=== PATIENT | male | born 1995 | race Caucasian/White ===

== ENCOUNTER 2016-06-24 10:47 | Emergency (ER) | payer OTHER ==
[2016-06-24 11:42] VITALS: BP 94/62
--- NOTE | 2016-06-24 11:50 | ER Document Report ---
ED Medical Screen (RME) - General Stated Complaint: EYE CONCERN Mode of Arrival: Ambulatory Information source: Patient Notes: 20 y/o M presents to ED c/o left eye redness, gritty feeling, and crusting over the last 2 days. States cannot recall obvious injury. I have greeted and performed a rapid initial assessment of this patient. A comprehensive ED assessment and evaluation of the patient, analysis of test results and completion of the medical decision making process will be conducted by additional ED providers. TRAVEL OUTSIDE OF THE [place] IN LAST 30 DAYS: No - Related Data Allergies/Adverse Reactions: No Known Allergies Allergy (Verified 04/05/16 18:00) Past Medical History - Immunizations Immunizations up to date: Yes Physical Exam - Vital signs Vitals: Temp Pulse Resp BP Pulse Ox 98.3 F 60 16 94/62 L 100 06/24/16 11:40 06/24/16 11:40 06/24/16 11:40 06/24/16 11:40 06/24/16 11:40 - General General appearance: Appears well, Alert In distress: None Course - Vital Signs Vital signs: Temp Pulse Resp BP Pulse Ox 98.3 F 60 16 94/62 L 100 06/24/16 11:40 06/24/16 11:40 06/24/16 11:40 06/24/16 11:40 06/24/16 11:40
[2016-06-24] MEDS ORDERED: TETRACAINE HCL 0.5% OPH SOLN 2 ML OS ONE (16:30)
--- NOTE | 2016-06-24 16:38 | ER Document Report ---
HPI - HPI Patient complains to provider of: LEFT EYE IRRITATION Onset: Other - 2 DAYS Pain Level: 1 Context: Patient presents to the emergency department with complaints of left eye irritation. He reports he was in the field 2 days ago when his left eye started irritating him. He reports some discharge when he wakes up in the morning. Denies wearing contacts denies trauma. Denies problems with his vision. 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 He reports he started to go to his [facility] but they were too slow so he came here. Symptoms such as fever vomiting diarrhea. Associated Symptoms: None Exacerbated by: Denies Relieved by: Denies Similar symptoms previously: No Recently seen / treated by doctor: No - DERM Skin Color: Normal Past Medical History - General Information source: Patient - Social History Smoking Status: Current Some Day Smoker Cigarette use (# per day): Yes Chew tobacco use (# tins/day): No Frequency of alcohol use: Occasional Drug Abuse: None Occupation: [place] [employer] [place] Lives with: Family Family History: Reviewed & Not Pertinent Patient has suicidal ideation: No Patient has homicidal ideation: No - Medical History Medical History: Negative Renal/ Medical History: Denies: Hx Peritoneal Dialysis Surgical Hx: Negative - Immunizations Immunizations up to date: Yes Vertical Provider Document - CONSTITUTIONAL Agree With Documented VS: Yes Exam Limitations: No Limitations General Appearance: WD/WN - INFECTION CONTROL TRAVEL OUTSIDE OF THE [place] IN LAST 30 DAYS: No - HEENT HEENT: Atraumatic, Normocephalic, PERRLA. negative: Conjuctival Injection - NECK Neck: Supple - RESPIRATORY Respiratory: Breath Sounds Normal, No Respiratory Distress O2 Sat by Pulse Oximetry: 100 - CARDIOVASCULAR Cardiovascular: Regular Rate - MUSCULOSKELETAL/EXTREMETIES Musculoskeletal/Extremeties: JITENDRA MONK - NEURO Level of Consciousness: Awake, Alert, Appropriate - DERM Integumentary: Warm, Dry Course - Re-evaluation Re-evalutation: 06/24/16 Patient was instructed on viral conjunctivitis. Patient was also instructed on importance of follow-up with his [facility] for recheck. Visual acuity was done with no deficits noted - Vital Signs Vital signs: Temp Pulse Resp BP Pulse Ox 98.3 F 60 16 94/62 L 100 06/24/16 11:40 06/24/16 11:40 06/24/16 11:40 06/24/16 11:40 06/24/16 11:40 Procedures - Eye Procedure Left Eye Irrigated w/ Saline (ccs): 10 Alcaine Drops Administered: No - tetracaine Fluorescein applied: Left Notes: 06/24/16 20:48 Patient reports immediate RELIEF OF IRRITATION after receiving tetracaine Discharge - Discharge Clinical Impression: Irritation of left eye, Viral conjunctivitis of left eye Condition: Stable Disposition: HOME, SELF-CARE Instructions: Conjunctivitis, Allergic Additional Instructions: *You have been evaluated for eye irritation, conjunctivitis *Use refresh or clear eyes eye drops as INDICATED *Follow up with your [facility] tomorrow for recheck *Return to ED for worsening condition, changes, needs
== END 2016-06-24 16:46 | disposition home or self-care (01) ==
LOC: ER 10:47
DX: B30.9 Viral conjunctivitis, unspecified (principal); H57.12 Ocular pain, left eye; F17.210 Nicotine dependence, cigarettes, uncomplicated
CPT/HCPCS: 99283

== ENCOUNTER 2018-06-23 16:40 | Emergency (ER) | payer OTHER ==
--- NOTE | 2018-06-23 18:46 | ER Document Report ---
ED Medical Screen (RME) - General Chief Complaint: Dizziness Stated Complaint: WEAK,NAUSEA Time Seen by Provider: 06/23/18 18:30 Mode of Arrival: Ambulatory Information source: Patient Notes: Patient is a 22-year-old male who presents the emergency department with lightheadedness, weakness, nausea and what feels like the room spinning around him. He denies any vomiting or diarrhea. He reports no fevers. Patient states his symptoms have been going on for 2 days. He denies any past medical or surgical history. Exam: Patient alert, oriented and in no acute distress. No neurological deficits noted. I have greeted and performed a rapid initial assessment of this patient. A comprehensive ED assessment and evaluation of the patient, analysis of test results and completion of the medical decision making process will be conducted by additional ED providers. Dictation of this chart was performed using voice recognition software; therefore, there may be some unintended grammatical errors. TRAVEL OUTSIDE OF THE [place] IN LAST 30 DAYS: No - Related Data Allergies/Adverse Reactions: No Known Allergies Allergy (Verified 06/23/18 18:11) Past Medical History - Social History Frequency of alcohol use: None Drug Abuse: None Renal/ Medical History: Denies: Hx Peritoneal Dialysis - Immunizations Immunizations up to date: Yes Physical Exam - Vital signs Vitals: Temp Pulse Resp BP Pulse Ox 98.6 F 76 16 127/59 H 100 06/23/18 16:57 06/23/18 16:57 06/23/18 16:57 06/23/18 16:57 06/23/18 16:57 Course - Vital Signs Vital signs: Temp Pulse Resp BP Pulse Ox 98.6 F 76 16 127/59 H 100 06/23/18 16:57 06/23/18 16:57 06/23/18 16:57 06/23/18 16:57 06/23/18 16:57
[2018-06-23 19:23] LABS: ABSOLUTE EOSINOPHILS # (AUTO) 0.3 10^3/uL (0.0-0.6); ABSOLUTE LYMPHOCYTES (AUTO) 3.3 10^3/uL (0.5-4.7); ABSOLUTE MONOCYTES (AUTO) 0.7 10^3/uL (0.1-1.4); ABSOLUTE NEUT (AUTO) 3.1 10^3/uL (1.7-8.2); BASOPHILS % (AUTO) 0.1 % (0-2); EOSINOPHILS % (AUTO) 3.5 % (0-6); HEMATOCRIT 45.4 % (37.9-51.0); HEMOGLOBIN 15.9 g/dL (13.5-17.0); LYMPHOCYTES % (AUTO) 44.6 % (13-45); MEAN CORPUSCULAR HGB CONC 35.1 g/dL (32.0-36.0); MEAN CORPUSCULAR VOLUME 86 fl (80-97); MONOCYTES % (AUTO) 9.4 % (3-13); PLATELET COUNT 253 10^3/uL (150-450); RED CELL DISTRIBUTION WIDTH 13.4 % (11.5-14.0); SEGMENTED NEUTROPHILS % (AUTO) 42.4 % (42-78); TOTAL CELLS COUNTED % (AUTO) 100 %; WHITE BLOOD COUNT 7.4 10^3/uL (4.0-10.5)
[2018-06-23 19:27] LABS: APPEARANCE,URINE CLEAR; BILIRUBIN,URINE NEGATIVE (NEGATIVE); COLOR,URINE YELLOW; GLUCOSE, URINE NEGATIVE (NEGATIVE); KETONES,URINE 80 mg/dL (NEGATIVE); LEUKOCYTE ESTERASE,URINE NEGATIVE (NEGATIVE); NITRITE,URINE NEGATIVE (NEGATIVE); PROTEIN,URINE NEGATIVE (NEGATIVE); URINE SPECIFIC GRAVITY 1.009; UROBILINOGEN,URINE NEGATIVE mg/dL (<2.0)
[2018-06-23 19:44] LABS: ALANINE AMINOTRANSFERASE 26 U/L (21-72); ALBUMIN 5.3 g/dL (3.5-5.0); ALKALINE PHOSPHATASE 67 U/L (38-126); ANION GAP 16 (5-19); ASPARTATE AMINO TRANSFERASE 19 U/L (17-59); BILIRUBIN,DIRECT 0.2 mg/dL (0.0-0.4); BILIRUBIN,TOTAL 2.6 mg/dL (0.2-1.3); BLOOD UREA NITROGEN 8 mg/dL (7-20); CALCIUM 10.1 mg/dL (8.4-10.2); CARBON DIOXIDE 25 mmol/L (22-30); CHLORIDE 99 mmol/L (98-107); GLUCOSE 77 mg/dL (75-110); LIPASE 58.4 U/L (23-300); POTASSIUM 4.2 mmol/L (3.6-5.0); SODIUM 139.5 mmol/L (137-145); TOTAL PROTEIN 7.6 g/dL (6.3-8.2)
--- NOTE | 2018-06-23 21:40 | ER Document Report ---
ED Dizziness/Weakness - General Chief Complaint: Dizziness Stated Complaint: WEAK,NAUSEA Time Seen by Provider: 06/23/18 21:40 Primary Care Provider: KATHY EATON MD [ACTIVE STAFF] - Follow up as needed Mode of Arrival: Ambulatory Information source: Patient Notes: HISTORY OF PRESENT ILLNESS: Patient is a 22-year-old male with no significant past medical history who presents with nausea and right upper quadrant abdominal pain. Location: Right upper quadrant Onset: Gradual Alleviation: "Some positions are better" Provocation: None Quality: Aching, tightness Radiation: None Severity: Moderate at worst, currently mild Timing: Intermittent History of abdominal surgery: None Associated symptoms: Denies fevers or chills, no diarrhea or constipation, no known sick contacts, no new medications, no recent travel Last bowel movement: Today and normal REVIEW OF SYSTEMS: CONSTITUTIONAL : Denies fever or chills, no sweats. Denies recent illness. EENT: Denies eye, ear, throat, or mouth pain or symptoms. Denies nasal or sinus congestion. CARDIOVASCULAR: Denies chest pain. Denies swelling of the legs. RESPIRATORY: Denies cough, cold, or chest congestion. Denies shortness of breath or difficulty breathing. Denies wheezing. GASTROINTESTINAL: Positive for abdominal pain. Positive for nausea but no vomiting or diarrhea. Denies constipation. GENITOURINARY: Denies difficulty urinating, painful urination, burning, frequency, or blood in urine. MUSCULOSKELETAL: Denies neck or back pain or joint pain or swelling. SKIN: Denies rash or skin lesions. HEMATOLOGIC : Denies easy bruising or bleeding. LYMPHATIC: Denies swollen, enlarged glands. NEUROLOGICAL: Denies altered mental status or loss of consciousness. Denies headache. Denies weakness or paralysis or loss of use of either side. Denies problems with gait or speech. Denies sensory or motor loss. PSYCHIATRIC: Denies anxiety or stress or depression. All other systems reviewed and negative. PHYSICAL EXAMINATION: GENERAL: Well-appearing, well-nourished and in no acute distress. HEAD: Atraumatic, normocephalic. No scalp deformity, depression, or crepitance. EYES: Pupils are 3 mm and equal/round/reactive to light, extraocular movements intact, sclera anicteric, conjunctiva are normal. ENT: Nares patent bilaterally, oropharynx. Moist mucous membranes. No tonsil hypertrophy. NECK: Normal range of motion, supple without lymphadenopathy. LUNGS: Breath sounds present, equal, and clear to auscultation bilaterally. No wheezes, rales, or rhonchi. HEART: Regular rate and rhythm without murmurs, rubs, or gallops. 2+ peripheral pulses. Normal capillary refill. ABDOMEN: Soft and nondistended, mild right upper quadrant tenderness without peritoneal signs. Normoactive bowel sounds. No guarding, no rebound. No masses appreciated. BACK: Normal contour, no midline tenderness. Rectal exam deferred. GENITAL: Deferred. EXTREMITIES: Normal range of motion, no pitting or edema. No cyanosis. NEUROLOGICAL: No focal neurological deficits. Moves all extremities spontaneously and on command. PSYCH: Normal mood, normal affect. No suicidal thoughts/ideations. No homocidal thoughts/ideations. No hallucinations. SKIN: Warm, dry, normal turgor, no rashes or lesions noted. ASSESSMENT AND PLAN: This patient is a 22-year-old male who presents with right upper quadrant abdomi nal pain and nausea. 1. Will obtain labs, urine, lipase, and right upper quadrant ultrasound. 2. Will continue to reassess and medicate as needed for symptomatic improvement. TRAVEL OUTSIDE OF THE [place] IN LAST 30 DAYS: No - Related Data Allergies/Adverse Reactions: No Known Allergies Allergy (Verified 06/23/18 18:11) Past Medical History - General Information source: Patient, Relative - Social History Smoking Status: Never Smoker Chew tobacco use (# tins/day): No Frequency of alcohol use: None Drug Abuse: None Lives with: Family Family History: Reviewed & Not Pertinent Patient has suicidal ideation: No Patient has homicidal ideation: No - Medical History Medical History: Negative - Past Medical History Cardiac Medical History: Reports: None Pulmonary Medical History: Reports: None EENT Medical History: Reports: None Neurological Medical History: Reports: None Endocrine Medical History: Reports: None Renal/ Medical History: Reports: None. Denies: Hx Peritoneal Dialysis Malignancy Medical History: Reports None GI Medical History: Reports: None Musculoskeletal Medical History: Reports None Skin Medical History: Reports None Psychiatric Medical History: Reports: None Traumatic Medical History: Reports: None Infectious Medical History: Reports: None Surgical Hx: Negative Past Surgical History: Reports: None - Immunizations Immunizations up to date: Yes Hx Diphtheria, Pertussis, Tetanus Vaccination: Yes History of Influenza Vaccine for 02/2017 - 07/2017 Season: Yes Physical Exam - Vital signs Vitals: Temp Pulse Resp BP Pulse Ox 98.6 F 76 16 127/59 H 100 06/23/18 16:57 06/23/18 16:57 06/23/18 16:57 06/23/18 16:57 06/23/18 16:57 Course - Re-evaluation Re-evalutation: 06/24/18 01:11 Blood work shows mild elevation of total bilirubin, however direct bilirubin is normal. This makes intrahepatic source most likely. Blood work otherwise is unremarkable. Ultrasound does not show evidence of intrahepatic echo genetic variation or difference to suggest fatty liver or other etiology. Patient will need to follow-up with gastroenterology for further workup. He will be discharged home with return precautions and follow-up through the . Patient voices both understanding and agreeing with the plan. - Vital Signs Vital signs: Temp Pulse Resp BP Pulse Ox 97.9 F 75 16 123/64 98 06/24/18 01:27 06/24/18 01:27 06/24/18 01:27 06/24/18 01:27 06/24/18 01:27 - Laboratory Result Diagrams: 06/23/18 19:10 06/23/18 19:10 Laboratory results interpreted by me: 06/23/18 06/23/18 19:10 19:10 Total Bilirubin 2.6 H Albumin 5.3 H Urine Ketones 80 H - Diagnostic Test Radiology reviewed: Image reviewed, Reports reviewed Discharge - Discharge Clinical Impression: Total bilirubin, elevated Abdominal pain Qualifiers: Abdominal location: generalized Qualified Code(s): R10.84 - Generalized abdominal pain Condition: Good Disposition: HOME, SELF-CARE Instructions: Abdominal Pain ([facility]) Additional Instructions: You have been evaluated in the Emergency Department for abdominal pain. Your blood work shows mild elevation of your total bilirubin, which is a breakdown product of blood cells that is processed through the liver. Your blood work otherwise was unremarkable, and an ultrasound showed no swelling or changes in your liver to explain your blood counts. Please follow-up with your primary physician and a imaging analyst as soon as possible for further workup. Return to the Emergency Department if you experience fevers, worsening pain, generalized itching, changes in the color of your stools, or any other concerning symptoms. Prescriptions: Ondansetron [Zofran Odt 4 mg Tablet] 1 tab PO Q6HP PRN #30 tab.rapdis PRN Reason: For Nausea/Vomiting Tramadol HCl [Ultram 50 mg Tablet] 50 mg PO Q6HP PRN #28 tablet PRN Reason: For Pain Referrals: KATHY EATON MD [ACTIVE STAFF] - Follow up as needed Print Language: Mongolian
--- NOTE | 2018-06-23 23:40 | RADIOLOGY REPORT (SQ) ---
EXAM DESCRIPTION: US ABDOMEN LIMITED COMPLETED DATE/TME: 06/23/2018 22:31 CLINICAL HISTORY: 22 years, Male, Abdominal pain COMPARISON: None. TECHNIQUE: Limited right upper quadrant ultrasound LIMITATIONS: None. FINDINGS: The liver is homogenous in echotexture without focal lesion. No gallstones or gallbladder wall thickening. The CBD measures 2.4 mm. The visualized pancreas, right kidney are unremarkable. No ascites. Visualized abdominal aorta and inferior vena cava are unremarkable. IMPRESSION: Unremarkable exam copyright 2010 [employer]- All Rights Reserved
[2018-06-24 01:31] VITALS: BP 123/64
== END 2018-06-24 01:31 | disposition home or self-care (01) ==
LOC: ER 16:40
DX: E80.6 Other disorders of bilirubin metabolism (principal); R10.84 Generalized abdominal pain; R42 Dizziness and giddiness; R53.1 Weakness; R11.0 Nausea
CPT/HCPCS: 36415; 76705; 80053; 81001; 83690; 85025; 99284